=== PATIENT | female | born 2000 | race Caucasian/White ===

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

== ENCOUNTER → 2025-05-16 | Outpatient (CLI) | payer OTHER | END | disposition home or self-care (01) | LOC: RAD 15:41 | PROVIDERS: ATTEND Student in an Organized Health Care Education/Training Program | DX: M25.571 Pain in right ankle and joints of right foot (principal); M79.671 Pain in right foot ==